=== PATIENT | male | born 1950 | race Caucasian/White ===

== ENCOUNTER 2024-01-02 06:24 | Inpatient (IN) | payer MEDICARE, BC ==
[~2024-01-02] VITALS: Ht 177.8 cm; Wt 81.6 kg
[2024-01-02] MEDS ORDERED: OXYMETAZOLINE HCL NASAL SPRAY 30 ML BOTTLE NS ONE (07:01)
[2024-01-02] MEDS ORDERED: VANCOMYCIN 1 GM VIAL ONE (07:01)
[2024-01-02] MEDS ORDERED: LIDOCAINE 2%-EPI 1:100,000 30 ML VIAL ONE (07:01)
[2024-01-02] MEDS ORDERED: ANESTHESIA TRAY IN PYXIS 1 EA TRAY MC ONE (07:01)
[2024-01-02] MEDS ORDERED: dexaMETHasone SOD PHOSPHATE 1 ML ONE ×2 (07:03→07:05)
[2024-01-02] MEDS ORDERED: SEVOFLURANE 250 ML BOTTLE IH ONE (07:49)
[2024-01-02] MEDS ORDERED: LABETALOL 20 MG/4 ML VIAL ONE (07:58)
--- NOTE | 2024-01-02 09:30 | NUR ---
MS RN NOTE RECEIVED PATIENT FROM RECOVERY ROOM. PATIENT TRANSPORTED VIA BED. PATIENT ALERT AND ORIENTED X 4, ABLE TO MAKE NEEDS KNOWN. ON ROOM AIR WITH EQUAL AND UNLABORED BREATHING. NO SIGNS OF DISTRESS AND DENIES PAIN AT THIS TIME. NOTED SOME BLOOD/ RED COLOR IN THE MOUTH BUT NO APPARENT ACTIVE BLEEDING NOTED UPON ASSESSMENT. WITH IV ACCESS ON THE LEFT AC G 20, PATENT AND INTACT. SAFETY MEASURES ENSURES WITH BED ON LOW LOCKED POSITION, ALARM ON, CALL LIGHT WITHIN REACH AT ALL TIMES. WILL CONTINUE WITH PLAN OF CARE.
[2024-01-02] MEDS ORDERED: BENA1TAB71 PO (10:58)
[2024-01-02] MEDS ORDERED: ACETAMINOPHEN 325 MG TABLET PO PRN (11:00)
[2024-01-02] MEDS ORDERED: IV NS 0.9% 1,000 ML IV PRN (11:00)
[2024-01-02] MEDS ORDERED: MAG HYDROX/AL HYDROX/SIMETH 30 ML UDC PO PRN (11:00)
[2024-01-02] MEDS ORDERED: MAGNESIUM HYDROXIDE 30 ML UDC PO PRN (11:00)
[2024-01-02] MEDS ORDERED: HYDROMORPHONE 1 MG/1 ML DISP.SYRIN IV PRN (11:00)
[2024-01-02] MEDS ORDERED: Z GUARD REMEDY 4 OZ OINT TP PRN (11:00)
[2024-01-02] MEDS ORDERED: ZOLPIDEM TARTRATE 5 MG TABLET PO PRN ×2 (11:00→20:00)
[2024-01-02] MEDS ORDERED: HYDROCODONE/APAP 10/325MG TABLET PO PRN (11:00)
[2024-01-02] MEDS ORDERED: ONDANSETRON HCL/PF 4 MG/2 ML VIAL IVP PRN (11:00)
--- NOTE | 2024-01-02 13:30 | NUR ---
MS RN NOTE SEEN BY HOSPITALIST AVRIL.
[2024-01-02 16:00] VITALS: BP 118/77; TEMP 97.5; O2SAT 95
[2024-01-02] MEDS: VANCOMYCIN 1 GM in IV D5W 250ml IV SCH (18:27)
--- NOTE | 2024-01-02 19:19 | NUR ---
MS RN NOTE PATIENT IN STABLE CONDITION. NO PAIN/ DISCOMFORT NOTED. ENDORSED TO NEXT SHIFT FOR CONTINUITY OF CARE.
[2024-01-02 20:00] VITALS: BP 144/90; TEMP 98.1; O2SAT 96
[2024-01-02 20:13] VITALS: BP 144/90; TEMP 98.1; O2SAT 96
--- NOTE | 2024-01-02 20:14 | NUR ---
CONTINUITY OF CARE Patient sitting up edge of the bed, Alert Oriented x4. No c/o pain, no bleed from surgical oral site. Patient requested sleep aid tonight, prefers early and not Melatonin. Saturating 96% on room air. Will cont plan of care.
[2024-01-02] MEDS: ZOLPIDEM TARTRATE 5 MG TABLET PO PRN (20:37)
--- NOTE | 2024-01-02 20:37 | NUR ---
SLEEP MEDICATION Patients verbalized Goal to sleep early tonight, PRN Ambien given. Patient aware of indication and possible side effect of the medication, reminded to use call light device if needing assistance. Patient stated, he's fine and he will not use it. Call light device place within reach.
--- NOTE | 2024-01-03 05:07 | NUR ---
IV VANCOMYCIN Reviewed chart, no vancomycin level ordered, Given IV Vancomycin earlier on scheduled time per patient request. Patient stated, he wants to go home today as early as he can.
--- NOTE | 2024-01-03 06:06 | NUR ---
INSISTING TO GO HOME Patient requesting to remove IV peripheral line, voicing to go home at 06:45am, explained to patient IV line to be removed prior dc and order for safe discharge to home. Patient insisted he will go home early, and will pecan picker him up at 06:45am. Notified REJI Dobbins. Awaiting orders.
[2024-01-03] MEDS ORDERED: ACET325T53 PO (06:25)
[2024-01-03] MEDS ORDERED: HYDR-3980 PO (06:25)
[2024-01-03 06:36] VITALS: BP 122/82; TEMP 97.9; O2SAT 98
--- NOTE | 2024-01-03 06:50 | NUR ---
DISCHARGED Patient in no acute distress, no active bleeding on surgical site. Denies pain, afebrile during the night. Tolerated soft diet, no complaints of N/V. Ambulating independently, denies headache, no dizziness, v/s stable. Patient was cleared for dc home. Discharge instruction given to patient, verbalized understanding and signed form. Patient aware to follow up within [address] Angel. Personal belongings checked and send with the patient upon dc. IV peripheral line removed. arrived, RN accompanied patient to [facility].
[2024-01-03 07:57] LABS: CALCIUM, SERUM 9.1 mg/dL (8.5-10.1); CARBON DIOXIDE 22 mmol/L (21-32); CHLORIDE 99 mmol/L (98-107); GLUCOSE 217 mg/dL (74-106); MAGNESIUM 2.3 mg/dL (1.8-2.4); PHOSPHORUS 3.3 mg/dL (2.5-4.9); POTASSIUM 4.1 mmol/L (3.5-5.1); SODIUM SERUM 133 mmol/L (136-145); UREA NITROGEN, BLOOD 25 mg/dL (7-18)
[2024-01-03 08:31] LABS: BASOPHILS % (AUTO) 0.1 % (0.0-2.0); HEMATOCRIT 46 % (39-51); LYMPHOCYTES # (AUTO) 0.9 K/uL (0.8-4.8); LYMPHOCYTES % (AUTO) 7.3 % (20.0-44.0); MEAN CORPUSCULAR HEMOGLOBIN 34 PG (26.0-33.0); MEAN CORPUSCULAR HGB CONC 33 g/dl (31.0-36.0); MEAN CORPUSCULAR VOLUME 102 fL (80-96); MONOCYTES # (AUTO) 0.9 K/uL (0.1-1.30); MONOCYTES % (AUTO) 7.4 % (2.0-12.0); NEUTROPHILS # (AUTO) 10.7 K/uL (1.8-8.9); NEUTROPHILS % (AUTO) 85.2 % (43.0-81.0); PLATELET COUNT (AUTO) 164 K/uL (150-450); RED BLOOD CELL COUNT(AUTO) 4.48 MIL/uL (4.5-6.0); RED CELL DISTRIBUTION WIDTH 13.7 % (11.5-15.0); WHITE BLOOD COUNT (AUTO) 12.6 K/uL (4.3-11.0)
== END 2024-01-03 06:45 | disposition home or self-care (01) | DRG 516 ==
LOC: DS 06:24 → MED 10:20
PROVIDERS: ADMIT Nurse Practitioner Acute Care; ATTEND Nurse Practitioner Family
PROC: 0WB30ZX Excision of Oral Cavity and Throat, Open Approach, Diagnostic (ICD-10-PCS; principal; 2024-01-02)
PROC: 0NBR0ZZ Excision of Maxilla, Open Approach (ICD-10-PCS; 2024-01-02)
PROC: 0NBV0ZZ Excision of Left Mandible, Open Approach (ICD-10-PCS; 2024-01-02)
PROC: 0NUV0JZ Supplement Left Mandible with Synthetic Substitute, Open Approach (ICD-10-PCS; 2024-01-02)
PROC: 0NUR07Z Supplement Maxilla with Autologous Tissue Substitute, Open Approach (ICD-10-PCS; 2024-01-02)
PROC: 0NUT07Z Supplement Right Mandible with Autologous Tissue Substitute, Open Approach (ICD-10-PCS; 2024-01-02)
PROC: 0NHT04Z Insertion of Internal Fixation Device into Right Mandible, Open Approach (ICD-10-PCS; 2024-01-02)
PROC: 0NHR04Z Insertion of Internal Fixation Device into Maxilla, Open Approach (ICD-10-PCS; 2024-01-02)
DX: S02.40DK Maxillary fracture, left side, subsequent encounter for fracture with nonunion (principal); M87.9 Osteonecrosis, unspecified; S02.609K Fracture of mandible, unspecified, subsequent encounter for fracture with nonunion; I10 Essential (primary) hypertension; M27.2 Inflammatory conditions of jaws; Z88.2 Allergy status to sulfonamides; X58.XXXD Exposure to other specified factors, subsequent encounter; S02.40CK Maxillary fracture, right side, subsequent encounter for fracture with nonunion; D16.4 Benign neoplasm of bones of skull and face
CPT/HCPCS: 36415; 80048-TC; 83735-TC; 84100-TC; 85025-TC; 88305-TC; 88311-TC; 88312-TC; A4223; C1713; G0378; J0461; J0690; J1100; J2310; J2704; J3370; J3490; J7050; J7060

== ENCOUNTER 2024-07-15 12:55 | Emergency (ER) | payer MEDICARE, BC ==
[~2024-07-15] VITALS: Ht 180.3 cm; Wt 81.6 kg
[~2024-07-15 12:55] MED LIST: ACET325T53 PO; BENA1TAB71 PO
[2024-07-15 13:35] LABS: CALCIUM, SERUM 9.8 mg/dL (8.5-10.1); CARBON DIOXIDE 31 mmol/L (21-32); CHLORIDE 102 mmol/L (98-107); GLUCOSE 110 mg/dL (74-106); POTASSIUM 4.5 mmol/L (3.5-5.1); SODIUM SERUM 142 mmol/L (136-145); UREA NITROGEN, BLOOD 15 mg/dL (7-18)
[2024-07-15 14:09] LABS: BASOPHILS # (AUTO) 0.1 K/uL (0.0-0.2); BASOPHILS % (AUTO) 1.1 % (0.0-2.0); EOSINOPHILS # (AUTO) 0.1 K/uL (0.0-0.7); EOSINOPHILS % (AUTO) 1.1 % (0.0-6.0); HEMATOCRIT 51 % (39-51); HEMOGLOBIN 17.8 g/dL (13.5-17.5); LYMPHOCYTES # (AUTO) 1.5 K/uL (0.8-4.8); LYMPHOCYTES % (AUTO) 24.7 % (20.0-44.0); MEAN CORPUSCULAR HEMOGLOBIN 35 PG (26.0-33.0); MEAN CORPUSCULAR HGB CONC 35 g/dl (31.0-36.0); MEAN CORPUSCULAR VOLUME 101 fL (80-96); MONOCYTES # (AUTO) 0.5 K/uL (0.1-1.30); MONOCYTES % (AUTO) 7.8 % (2.0-12.0); NEUTROPHILS # (AUTO) 3.9 K/uL (1.8-8.9); NEUTROPHILS % (AUTO) 65.3 % (43.0-81.0); PLATELET COUNT (AUTO) 169 K/uL (150-450); RED BLOOD CELL COUNT(AUTO) 5.03 MIL/uL (4.5-6.0); RED CELL DISTRIBUTION WIDTH 13.3 % (11.5-15.0)
[2024-07-15 17:08] VITALS: BP 141/80; TEMP 97.9; O2SAT 99
== END 2024-07-15 15:00 | disposition home or self-care (01) ==
LOC: ER 12:58
DX: R07.89 Other chest pain (principal); I10 Essential (primary) hypertension; Z79.899 Other long term (current) drug therapy; Z88.2 Allergy status to sulfonamides
CPT/HCPCS: 36415; 71250-TC; 80048-TC; 84484-TC; 85025-TC